=== PATIENT | female | born 1970 | race Caucasian/White ===

== ENCOUNTER 2016-09-03 15:46 | Outpatient (RCR) | payer OTHER | END 2016-09-12 13:39 | LOC: WSOH 15:46 | DX: S46.012A Strain of muscle(s) and tendon(s) of the rotator cuff of left shoulder, initial encounter (principal); M77.12 Lateral epicondylitis, left elbow; X50.3XXA Overexertion from repetitive movements, initial encounter; Y99.0 Civilian activity done for income or pay ==

== ENCOUNTER → 2016-09-30 | Outpatient (CLI) | payer OTHER | LOC: COL.RAD 13:09 | DX: M75.22 Bicipital tendinitis, left shoulder (principal); M75.81 Other shoulder lesions, right shoulder; M25.522 Pain in left elbow | CPT/HCPCS: A9585; Q9967 ==

== ENCOUNTER 2016-12-17 08:00 | Outpatient (RCR) | payer OTHER | END 2017-01-01 09:57 | disposition still patient (30) | LOC: WSOT 08:00 | DX: M25.522 Pain in left elbow (principal); M25.512 Pain in left shoulder; M25.622 Stiffness of left elbow, not elsewhere classified; M25.612 Stiffness of left shoulder, not elsewhere classified; R53.1 Weakness; F17.210 Nicotine dependence, cigarettes, uncomplicated; Z88.0 Allergy status to penicillin; Z88.2 Allergy status to sulfonamides ==